=== PATIENT | male | born 1945 | race Caucasian/White ===

== ENCOUNTER → 2018-11-29 | Day surgery (SDC) | payer MEDICARE, BC ==
[~2018-11-29] MED LIST: EYE DROPS; FENTANYL CITRATE/PF 100MCG/2 ML INJ ONE; LIDOCAINE HCL 2% LOCAL INJ 5 ML SDV VIAL INJ ONE; MIDAZOLAM HCL 2 MG/2 ML VIAL ONE; MULTI-VITAMIN1 EACH; OFLOXACIN 0.3% (OTIC SOL) 5 ML BTL OT ONE; PROPOFOL IV EMULSION 10 MG/ML 20 ML VIAL ONE; SEVOFLURANE INHAL SOLN 250 ML PEN BTL ONE
--- NOTE | 2018-11-29 00:40 | Pre Op History & Physical ---
DATE OF SURGERY: November 29, 2018. CHIEF COMPLAINT: Right ear pain. HISTORY OF PRESENT ILLNESS: This 72-year-old male has decreased hearing and pain in the right ear over the past few months. The patient had a mastoidectomy done many years ago. The patient denies any drainage from the ear. The patient has no tinnitus or vertigo. He has been treated with antibiotics with no improvement of the condition. 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 A CT scan of the temporal bone that was done after he was being seen by myself showed that the patient has normal temporal bone of the left ear with intact canal wall right mastoidectomy and possible opacification of the residual right mastoid air cell without coalescence. 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 For the neurological problem, the patient has been consulted previously to Dr. Gann. The patient's ear discomfort did not improve with medical treatment. REVIEW OF SYSTEMS: System review showed no recent cardiovascular, respiratory, or GI problem. PAST MEDICAL HISTORY: The patient denies any previous medical problem. PAST SURGICAL HISTORY: The patient had previous eye surgery, shoulder surgery, cholecystectomy, appendectomy, and C-spine fusion. He has a history of prostate cancer. ALLERGIES: HE IS ALLERGIC TO DEMEROL AND MORPHINE. MEDICATIONS: The patient's only medicine he is on is eye drops. SOCIAL HISTORY: He is nonsmoker and nondrinker. FAMILY HISTORY: Noncontributory. PHYSICAL EXAMINATION: VITAL SIGNS: Within normal limits. HEENT: Ear exam showed normal tympanic membrane bilaterally with no obvious perforation noted. No obvious effusion was noted in the middle ear on the right side. Nasal exam showed the nasal septum on the right side about 40%. Oropharynx and oral cavity show 1+ tonsils bilaterally with Mallampati level 2. NECK: Showed no lymph node or thyroid palpable. CHEST: Showed good air entry bilaterally. CARDIOVASCULAR: Show S1 and S2. No murmur noted. QC TECH: Showed cranial nerves II through XII were within normal limits. ASSESSMENT AND PLAN: Mr. Escalona has right otalgia. The CT scan did show some opacification of the right mastoid cavity. The condition has been resistant to conservative therapy. It is suggested that treatment is myringotomy and tubes on the right ear and other necessary procedure. The complication of procedure includes, but not limited to bleeding, infection, TM perforation, persistent drainage from the ear, hearing loss, persistent recurrence of the discomfort, and right otalgia and ear problem. Alternatives will be to continue observation, continue antibiotic therapy, topical nasal steroid therapy, systemic steroid therapy, decongestant, and myringotomy and tubes on the right side in the office setting. The patient has discussed this condition with his brother whom he claims has similar condition and after consult with his family member and having lengthy discussion with myself, the patient has elected to undergo surgical procedure. MD BK Landeros/JUANCHO /[id number] cc: Dr. Polanco
--- OUTSIDE RECORDS SUMMARY | 2018-11-29 10:33 | XMS REPORT | Clinical Summary ---
Author Author Danielle [facility] Organization [facility] Address Unknown Phone Unavailable Care Team Providers Care Aircraft Inspection Record Clerk Name Role Phone Oseas Polanco MD PCP Allergies Comments Active Allergy Reactions Severity Noted Date Hallucinations Meperidine Other (See 06/18/2016 Comments) hallucinations Morphine Other (See 05/25/2016 Comments) Medications End Date Status Medication Sig Dispensed Refills Start Date Active multivitamin with Take 1 tablet 0 minerals tablet by mouth daily. Active cholecalciferol, vitamin Take 2,000 0 D3, (VITAMIN D3) 2,000 Units by unit tablet mouth daily. Active naproxen sodium (ALEVE) Take by mouth 0 220 mg capsule as needed. Active b complex vitamins Take 1 0 capsule capsule by mouth daily. 10/05/2019 Active albuterol (PROAIR Inhale 2 1 Inhaler 1 HFA,PROVENTIL puffs every 6 9 HFA,VENTOLIN HFA) 90 (six) hours mcg/actuation as needed for inhalerIndications: wheezing or Cough, Community acquired shortness of pneumonia, unspecified breath. laterality, SOB (shortness of breath) 08/15/2018 Discontinued BEE POLLEN ORAL Take by 0 mouth. 12/20/2017 fluconazole (DIFLUCAN) Take 1 tablet 2 tablet 0 150 MG tabletIndications: (150 mg 8 Marylou rash of groin total) by mouth once for 1 dose. May repeat the dose in one week. 10/10/2018 azithromycin (ZITHROMAX) Take 2 6 tablet 0 250 MG tabletIndications: tablets the 9 Cough, Community acquired first day, pneumonia, unspecified then 1 tablet laterality, SOB daily for 4 (shortness of breath) days. 10/11/2018 methylPREDNISolone follow 21 tablet 0 (MEDROL DOSEPAK) 4 mg package 9 tabletIndications: Cough, directions Community acquired pneumonia, unspecified laterality, SOB (shortness of breath) Status Hospital, Clinic, or Ordered Dose Route Frequency Start End Date Other Facility Date Administered Medication Ended methylPREDNISolone 80 mg IM once 10/06/19 acetate (DEPO-MEDROL) 19 9 injection 80 mgIndications: Cough, Community acquired pneumonia, unspecified laterality, SOB (shortness of breath) Active Problems Problem Noted Date Nuclear sclerotic cataract of left eye 10/12/2018 History of vitrectomy 09/07/2018 Allergy to poison wilmer 05/26/2017 Last Assessment & Plan: History and findings consent with poison wilmer allergy. Discussed treatment options. Given systemic symptoms, higher dose steroid pack preferred. Close monitoring of symptoms. Follow-up in office as needed. Impetigo 05/26/2017 Last Assessment & Plan: Left arm batista appearing vesicular rash more consistent with a staph infection, impetigo Add Bactrim for coverage. Monitor symptoms and follow up in office if not improving in the next 3-5 days. Primary osteoarthritis of knee 04/29/2017 Encounters Care Team Description Date Type Specialty Gricel Horner MD 10/13/2018 Anesthesia General Surgery Event Mack Domingo MD PHACOEMULSIFICATION, CATARACT, WITH IOL IMPLANTATION 10/13/2018 Surgery General Surgery Mack Domingo MD 10/13/2018 [facility] General Surgery Encounter Mack Domingo MD 10/13/2018 Orders Only Family Oseas Brown MD Cough (Primary Dx); Community acquired pneumonia, unspecified laterality; SOB (shortness of breath) 10/05/2018 Office Visit Family Gricel Estrada MD 09/08/2018 Anesthesia General Surgery Event Mack Domingo MD PHACOEMULSIFICATION, CATARACT, WITH IOL IMPLANTATION 09/08/2018 Surgery General Surgery Mack Domingo MD 09/08/2018 [facility] General Surgery Encounter Oseas Polanco MD Pre-operative clearance (Primary Dx) 08/15/2018 Office Visit Family Kwame Heller MD Elevated BP without diagnosis of hypertension (Primary Dx) 03/11/2018 Office Visit Family Kwame Heller MD Marylou rash of groin (Primary Dx) 12/20/2017 Office Visit Family Medicine after 11/28/2017 Immunizations Name Dates Previously Given Next Due FLUZONE HIGH-DOSE PF 04/29/2017 Pneumococcal Conjugate 12/10/2015 13-Valent Family History Medical History Relation Name Comments Cancer Brother Vipul Escalona Prostate Diabetes Brother Vipul Escalona No Known Problems Father Emphysema Mother Relation Name Status Comments Brother Vipul Escalona Father Mother Social History Date Tobacco Use Types Packs/Day Years Used Never Smoker Smokeless Tobacco: Never Used Alcohol Use Drinks/Week oz/Week Comments No Sex Assigned at Date Recorded Not on file Industry Job Start Date Occupation Not on file Not on file Not on file Travel End Travel History Travel Start No recent travel history available. Last Filed Vital Signs Time Taken Vital Sign Reading 10/13/2018 1:00 PM CDT Blood Pressure 120/76 10/13/2018 1:00 PM CDT Pulse 63 10/13/2018 12:50 PM CDT Temperature 36.5 C (97.7 F) 10/13/2018 12:50 PM CDT Respiratory Rate 18 10/13/2018 1:00 PM CDT Oxygen Saturation 93% - Inhaled Oxygen - Concentration 10/13/2018 10:49 AM CDT Weight 76.7 kg (169 lb) 10/13/2018 10:49 AM CDT Height 171.5 cm (5' 7.5") 10/13/2018 10:49 AM CDT Body Mass Index 26.08 Plan of Treatment Health Maintenance Due Date Last Done Comments COLON CANCER SCREENING 11/11/1997 SHINGLES VACCINES (#1) 11/11/1997 PNEUMOCOCCAL 11/11/2012 POLYSACCHARIDE VACCINE AGE 65 AND OVER 65+ PNEUMOCOCCAL VACCINE 12/09/2016 12/10/2015 (2 of 2 - PPSV23) INFLUENZA VACCINE 02/02/2019 04/29/2017 Implants Device Identifier Shelf Expiration Date Model / Serial / Lot Implanted Type Area Manufactur er 03/04/2023 SN60WF 200 / [id number] / [id number] Lens Iol Asprc Asymet Bicnvx Ant Intraocula Right: Eye HEATH +20.0d 0deg 6x13mm - [id number] - r Lens [employer]ORATORI [id number] Implant [employer] Implanted: Qty: 1 on 09/08/2018 by Mack Domingo MD 06/03/2023 SN60WF 200 / [id number] / [id number] Lens Iol Asprc Asymet Bicnvx Ant Intraocula Left: Eye HEATH +20.0d 0deg 6x13mm - [id number] - r Lens [employer]ATOR[employer] [id number] Implant [employer] Implanted: Qty: 1 on 10/13/2018 by Mack Domingo MD Procedures Comments Procedure Name Priority Date/Time Associated Diagnosis PHACOEMULSIFICATION, 10/13/2018 Age-related nuclear CATARACT, WITH IOL 11:45 AM CDT cataract, left IMPLANTATION Special Needs SN60WF+20. 0 IP CONSULT TO Routine 10/12/2018 OPHTHALMOLOGY PHACOEMULSIFICATION, 09/08/2018 Nuclear sclerotic CATARACT, WITH IOL 8:10 AM PLANETARIUM SKY SHOW TECHNICIAN cataract of right eye IMPLANTATION Special Needs SN60WF+20. 0 ECG 12-LEAD Routine 07/15/2018 Pre-operative clearance 12:19 AM PLANETARIUM SKY SHOW TECHNICIAN ECG 12-LEAD Routine 03/11/2018 Elevated BP without 2:25 PM CDT diagnosis of hypertension BASIC METABOLIC PANEL Routine 03/11/2018 Elevated BP without 12:00 AM CDT diagnosis of hypertension after 11/28/2017 Results * Consult Ophthalmology (10/12/2018) Narrative Performed At * ECG 12 lead (07/15/2018 12:19 AM PLANETARIUM SKY SHOW TECHNICIAN) Only the most recent of 2 results within the time period is included. Ventricular 79 [facility] rate Atrial rate 79 [facility] MT interval 144 [facility] QRSD interval 98 [facility] QT interval 382 [facility] QTC interval 438 [facility] P axis 1 56 [facility] QRS axis 1 29 [facility] T wave axis 56 [facility] EKG impression Sinus rhythm with occasional [facility] premature ventricular complexes-Otherwise normal ECG-In automated comparison with ECG of 11-MAR-2018 14:25,-premature atrial complexes are no longer present- Specimen Narrative Performed At Performing Organization Address City/State/Zipcode Phone Number [facility] [address] [place] [address] * Basic metabolic panel (03/11/2018 12:00 AM CDT) Glucose 85 65 - 139 mg/dL [facility] Comment: [facility] Non-fasting [place] reference interval BUN, whole 21 7 - 25 mg/dL [facility] blood [facility] [place] Creatinine 0.91 0.70 - 1.18 mg/dL [facility] Comment: [facility] For patients >49 years of age, [place] the reference limit for Creatinine is approximately 13% higher for people identified as -[place]. EGFR Non-Afr. 85 > OR=60 [facility] [place] mL/min/1.73m2 [facility] [place] EGFR 99 > OR=60 [facility] [place] mL/min/1.73m2 [facility] [place] BUN/creatinine NOT APPLICABLE 6 - 22 (calc) [facility] ratio [facility] [place] Sodium 142 135 - 146 mmol/L [facility] [place] Potassium 4.1 3.5 - 5.3 mmol/L [facility] [place] Chloride 108 98 - 110 mmol/L [facility] [place] CO2 27 20 - 32 mmol/L [facility] [place] Calcium 8.9 8.6 - 10.3 mg/dL [facility] [place] Specimen Blood Narrative Performed At FASTING:NO [facility] FASTING: NO Resulting Agency Comment Performing Organization Information: Site ID: [id number] Name: [facility] Address: [address] [place] [address] Director: Dara Roche Performing Organization Address City/State/Zipcode Phone Number [facility] [employer] [place] [address] [place], [place] [phone] after 11/28/2017 Insurance Type Payer Benefit Subscriber ID Effective Phone Address Plan / Dates Group Medicare MEDICARE MEDICARE xxxxxxxxxxx 2012-P [place], PART A AND resent [place] B PPO BCBS BCBS xxxxxxxxxxxx 2012-P CHOICE resent PPO/[place] PPO Advance Directives Patient has advance care planning documents on file. For more information, brenda betancur contact: Shashi Cadet [address] [place] [address]
[2018-11-29 13:15] VITALS: BP 142/87
--- NOTE | 2018-11-29 18:19 | Operative Report ---
DATE OF PROCEDURE: 11/29/2018 SURGEON: William Wu MD PREOPERATIVE DIAGNOSIS: Right chronic otitis media. POSTOPERATIVE DIAGNOSIS: Right chronic otitis media. PROCEDURES: 1. Right myringotomy and tube. 2. Examination under anesthesia for the left ear. ANESTHESIA: Anesthesiology group. INDICATIONS: This 73-year-old male has a history of chronic otitis media with otalgia on the right side for a few months. The patient had previous right canal wall up mastoidectomy many years ago. Audiogram showed the patient has imonaofp-[id number] sensorineural hearing loss, which is symmetrical. The patient has speech discrimination in the 40% range on the right side and 80 plus percent range in the left side. CT scan of the temporal bone showed the patient has right mastoid opacification. The left ear was clear. MRI of the skull base was also done, which showed that he has history of ischemic changes in his brain, but IAC was normal. It also confirmed the mastoid opacification. It was decided that myringotomy and tube on the right side, examination under anesthesia on the left, and other necessary procedures will be beneficial for him. DESCRIPTION OF PROCEDURE: The patient was taken to the operating room, put under general anesthesia. The right ear was examined. The ear canal was debrided. Myringotomy was done in anterior superior quadrant. No effusion was noted in middle ear cleft. Camargo grommet tube was inserted. Similar procedure was carried out on the contralateral side. The left ear was examined. The canal was debrided. The TM was normal. This was not disturbed. The patient tolerated the above procedure well with minimal blood loss. The patient was able to be transferred to recovery room in stable condition. William Wu MD DKH/MODL /[id number]
== END | disposition home or self-care (01) ==
LOC: OR 10:30
PROVIDERS: ATTEND Otolaryngology Otolaryngology/Facial Plastic Surgery
DX: H66.91 Otitis media, unspecified, right ear (principal); Z86.73 Personal history of transient ischemic attack (TIA), and cerebral infarction without residual deficits; Z88.6 Allergy status to analgesic agent
CPT/HCPCS: 69399; 69436; J2001; J2250; J2704